=== PATIENT | male | born 1980 | race Caucasian/White ===

== ENCOUNTER 2022-09-21 14:15 | Inpatient (IN) | payer MEDICAID, OTHER ==
[2022-09-20 23:39] VITALS: BP 129/56
[~2022-09-21] VITALS: Ht 182.9 cm; Wt 84.5 kg
[2022-09-21 14:54] LABS: Basophils # (auto) 0.1 10 ^3/uL (0-0.2); Eosinophils # (auto) 0.6 10 ^3/uL (0-0.8); Red Blood Cells 2.71 10^6/uL (4.5-5.90)
[2022-09-21 14:55] LABS: Basophils % (auto) 0.7 % (0.0-2.0); Eosinophils % (auto) 3.1 % (0.0-7.0); Hematocrit 19.3 % (41.0-53.0); Lymphocytes # (auto) 1.9 10 ^3/uL (0.4-5.4); Lymphocytes % (auto) 8.9 % (10.0-50.0); Mean Corpuscular Hemoglobin 20.7 pg (28.0-32.0); Mean Corpuscular Hgb Conc. 29.2 g/dL (32.0-36.0); Monocytes # (auto) 1.1 10 ^3/uL (0-1.3); Neutrophils # (auto) 17.4 10 ^3/uL (1.6-8.6); Neutrophils % (auto) 82.3 % (37.0-80.0); Nucleated Red Blood Cells % 0.1 %; Red Cell Distribution Width 17.6 % (11.8-14.3); White Blood Cell 21.1 10^3/uL (4.4-10.8)
[2022-09-21 15:13] LABS: Albumin 2.8 g/dL (3.4-5.0); Calcium 8.1 mg/dL (8.5-10.1); Potassium 3.5 mmol/L (3.5-5.1)
[2022-09-21 15:18] LABS: BUN/Creatinine Ratio 7.4 (10.0-20.0); Bilirubin, Total 3.6 mg/dL (0.2-1.0); Total Protein 6.7 g/dL (6.4-8.2)
[2022-09-21 15:21] LABS: Hemoglobin 5.6 g/dL (13.5-17.5)
[2022-09-21 16:13] LABS: Magnesium 1.8 mg/dL (1.6-2.6)
[2022-09-21 16:19] LABS: Lactic Acid w/Reflex 3.5 mmol/L (0.4-2.0)
[2022-09-21] MEDS ORDERED: PIPERACILLIN-TAZOB 3.375GM 100 ML IV ONE (16:30)
[2022-09-21 17:15] LABS: Urine Bacteria NONE SEEN /hpf (None Seen); Urine Blood 1+ /uL (Negative); Urine Hyaline Cast FEW /lpf (0 - 2); Urine Mucus FEW (None Seen); Urine Specific Gravity 1.019 (1.001-1.035); Urine WBC 100 /hpf (0 - 3); Urine WBC Clumps PRESENT /hpf (None Seen)
[2022-09-21 17:29] LABS: INR 1.56 (0.9-1.15)
[2022-09-21 17:36] LABS: Alcohol, Urine < 3.0 mg/dL (0-10); Amphetamine Screen, Urine NEGATIVE (NEGATIVE); Barbiturate Scree,Urine NEGATIVE (NEGATIVE); Cannabinoid Screen, Urine NEGATIVE (NEGATIVE); Cocaine Screen, Urine NEGATIVE (NEGATIVE)
[2022-09-21 17:38] LABS: Cannabinoid Screen, Urine NEGATIVE (NEGATIVE)
[2022-09-21 17:39] LABS: % Iron Saturation 3.3 % (20-55)
[2022-09-21 17:40] LABS: Alcohol, Urine < 3.0 mg/dL (0-10); Amphetamine Screen, Urine NEGATIVE (NEGATIVE); Barbiturate Scree,Urine NEGATIVE (NEGATIVE); Benzodiazephine Screen, Urine NEGATIVE (NEGATIVE); Cocaine Screen, Urine NEGATIVE (NEGATIVE); Opiate Scree,Urine NEGATIVE (NEGATIVE); Phencyclidine Screen, Urine NEGATIVE (NEGATIVE)
[2022-09-21] MEDS ORDERED: NICOTINE 14 MG/24HR TOPICAL PATCH TD ONE (17:45)
[2022-09-21] MEDS ORDERED: FOLIC ACID 1 MG TAB PO ONE (17:45)
[2022-09-21] MEDS ORDERED: THIAMINE HCL 100 MG TAB PO ONE (17:45)
[2022-09-21] MEDS ORDERED: MULTIPLE VITAMIN TAB PO ONE (17:45)
[2022-09-21] MEDS ORDERED: SODIUM CHLORIDE 0.9% 2,000 ML IV ONE (17:45)
[2022-09-21] MEDS ORDERED: NITROGLYCERIN 0.4 MG SL TAB SL PRN (18:15)
[2022-09-21] MEDS ORDERED: MORPHINE SULFATE INJ 2 MG/ml SYRG IV PRN (18:15)
[2022-09-21] MEDS ORDERED: ACETAMINOPHEN 325 MG TAB PO PRN (18:15)
[2022-09-21 18:56] LABS: Albumin 2.9 g/dL (3.4-5.0); Calcium 8.2 mg/dL (8.5-10.1); Potassium 3.4 mmol/L (3.5-5.1)
[2022-09-21 18:58] LABS: BUN/Creatinine Ratio 7.9 (10.0-20.0)
[2022-09-21 18:59] LABS: Bilirubin, Total 3.8 mg/dL (0.2-1.0)
[2022-09-21] MEDS ORDERED: SODIUM CHLORIDE 0.9% 1,000 ML IV ONE (19:45)
[2022-09-21] MEDS: PANTOPRAZOLE 40mg/50ML NS AE 50 ML IV SCH ×2 (21:14→22:15)
[2022-09-21] MEDS: OCTREOTIDE ACETATE 500 MCG in SODIUM CHL 0.9% 99 ML IV SCH (22:18)
[2022-09-21 22:44] LABS: Lactic Acid w/Reflex 2.1 mmol/L (0.4-2.0)
[2022-09-21 23:35] VITALS: BP 113/71
[2022-09-21 23:50] VITALS: BP 102/75
[2022-09-22] VITALS (18 sets, daily range): BP systolic 98–124; BP diastolic 67–84
[2022-09-22] MEDS: PIPERACILLIN-TAZOB 3.375GM 100 ML IV SCH ×4 (00:03→21:50)
[2022-09-22] MEDS: LORazepam 2MG/ML-1ML VIAL IV PRN ×2 (00:15→05:28)
[2022-09-22] MEDS: SODIUM CHLORIDE 0.9% 1,000 ML IV SCH ×4 (02:15→19:03)
[2022-09-22] MEDS: PANTOPRAZOLE 40mg/50ML NS AE 50 ML IV SCH ×5 (04:35→23:42)
[2022-09-22] MEDS: OCTREOTIDE ACETATE 500 MCG in SODIUM CHL 0.9% 99 ML IV SCH ×2 (04:35→10:11)
[2022-09-22 06:10] LABS: Basophils # (auto) 0.1 10 ^3/uL (0-0.2); Basophils % (auto) 0.6 % (0.0-2.0); Mean Corpuscular Volume 75.6 fL (80.0-100.0); Monocytes # (auto) 0.9 10 ^3/uL (0-1.3); Monocytes % (auto) 5.7 % (0.0-12.0); Nucleated Red Blood Cells % 0.1 %; Red Cell Distribution Width 19.6 % (11.8-14.3)
[2022-09-22 06:13] LABS: Eosinophils # (auto) 0.7 10 ^3/uL (0-0.8); Eosinophils % (auto) 4.6 % (0.0-7.0); Hematocrit 21.2 % (41.0-53.0); Lymphocytes # (auto) 1.4 10 ^3/uL (0.4-5.4); Lymphocytes % (auto) 8.8 % (10.0-50.0); Mean Corpuscular Hemoglobin 23.1 pg (28.0-32.0); Mean Corpuscular Hgb Conc. 30.6 g/dL (32.0-36.0); Neutrophils # (auto) 13.1 10 ^3/uL (1.6-8.6); Neutrophils % (auto) 80.3 % (37.0-80.0); White Blood Cell 16.4 10^3/uL (4.4-10.8)
[2022-09-22 06:30] LABS: Potassium 3.4 mmol/L (3.5-5.1)
[2022-09-22 06:48] LABS: Albumin 2.4 g/dL (3.4-5.0); BUN/Creatinine Ratio 13.6 (10.0-20.0); Bilirubin, Total 5.2 mg/dL (0.2-1.0); Calcium 7.4 mg/dL (8.5-10.1); Total Protein 5.7 g/dL (6.4-8.2)
[2022-09-22 06:49] LABS: Hemoglobin 6.5 g/dL (13.5-17.5)
[2022-09-22] MEDS: FOLIC ACID 1 MG TAB PO SCH (08:44)
[2022-09-22] MEDS: THIAMINE HCL 100 MG TAB PO SCH (08:44)
[2022-09-22] MEDS: MULTIPLE VITAMIN TAB PO SCH (08:44)
[2022-09-22] MEDS: NICOTINE 14 MG/24HR TOPICAL PATCH TD SCH (08:45)
[2022-09-22 09:47] LABS: Hepatitis B Surface Antibody Negative (Negative)
[2022-09-22 10:13] LABS: Hepatitis A Total Antibody Negative (Negative)
[2022-09-22 11:24] LABS: Folate (Folic Acid) 7.48 ng/mL (5.38-24)
[2022-09-22 13:15] LABS: Hepatitis C Antibody Negative (Negative)
[2022-09-22 13:19] LABS: Hepatitis A Ab IgM Negative; Hepatitis B Core IgM Negative
[2022-09-22 13:21] LABS: Hepatitis C Antibody Negative (Negative)
[2022-09-23] MEDS: OCTREOTIDE ACETATE 500 MCG in SODIUM CHL 0.9% 99 ML IV SCH ×2 (01:01→12:59)
[2022-09-23] MEDS: SODIUM CHLORIDE 0.9% 1,000 ML IV SCH ×3 (01:05→17:07)
[2022-09-23] MEDS: LORazepam 2MG/ML-1ML VIAL IV PRN (04:31)
[2022-09-23 05:00] VITALS: BP 111/75
[2022-09-23] MEDS: PANTOPRAZOLE 40mg/50ML NS AE 50 ML IV SCH ×4 (05:19→23:00)
[2022-09-23] MEDS: PIPERACILLIN-TAZOB 3.375GM 100 ML IV SCH ×3 (05:19→21:26)
[2022-09-23] MEDS ORDERED: SODIUM CHLORIDE LOCK 10 ML ONE (08:41)
[2022-09-23] MEDS ORDERED: LIDOCAINE VISCOUS 2% 15ML UD ONE (08:41)
[2022-09-23 09:00] VITALS: BP 127/89
[2022-09-23] MEDS: MULTIPLE VITAMIN TAB PO SCH (09:08)
[2022-09-23] MEDS: THIAMINE HCL 100 MG TAB PO SCH (09:08)
[2022-09-23] MEDS: FOLIC ACID 1 MG TAB PO SCH (09:08)
[2022-09-23] MEDS: NICOTINE 14 MG/24HR TOPICAL PATCH TD SCH (09:09)
[2022-09-23 11:41] LABS: Hemoglobin 7.5 g/dL (13.5-17.5); White Blood Cell 16.5 10^3/uL (4.4-10.8)
[2022-09-23 11:43] LABS: BUN/Creatinine Ratio 10.3 (10.0-20.0); Calcium 7.2 mg/dL (8.5-10.1); Potassium 3.4 mmol/L (3.5-5.1)
[2022-09-23 11:44] LABS: Basophils # (auto) 0.2 10 ^3/uL (0-0.2); Basophils % (auto) 1.3 % (0.0-2.0); Eosinophils # (auto) 0.8 10 ^3/uL (0-0.8); Eosinophils % (auto) 4.9 % (0.0-7.0); Hematocrit 23.8 % (41.0-53.0); Lymphocytes # (auto) 1.9 10 ^3/uL (0.4-5.4); Lymphocytes % (auto) 11.8 % (10.0-50.0); Mean Corpuscular Hemoglobin 24.3 pg (28.0-32.0); Mean Corpuscular Hgb Conc. 31.4 g/dL (32.0-36.0); Mean Corpuscular Volume 77.1 fL (80.0-100.0); Monocytes # (auto) 1.2 10 ^3/uL (0-1.3); Neutrophils # (auto) 12.4 10 ^3/uL (1.6-8.6); Red Blood Cells 3.09 10^6/uL (4.5-5.90)
[2022-09-23 12:08] LABS: Red Cell Distribution Width 20.9 % (11.8-14.3)
[2022-09-23 13:00] VITALS: BP 114/77
[2022-09-23] MEDS: MIDAZOLAM HCL 5 MG/ML-1ML VIAL ONE ×4 (16:06→16:16)
[2022-09-23] MEDS: fentaNYL CITRATE 100 MCG/2 ML VL ONE ×3 (16:06→16:12)
[2022-09-23] MEDS: diphenhdrAMINE HCL 50 MG/1 ML VL ONE ×2 (16:06→16:09)
[2022-09-23] MEDS: SUCRALFATE 1 GM/10 ML ORAL SUSP PO SCH ×2 (17:06→21:26)
[2022-09-23 22:00] VITALS: BP 119/81
[2022-09-24] MEDS: PANTOPRAZOLE 40mg/50ML NS AE 50 ML IV SCH ×5 (00:45→22:06)
[2022-09-24] MEDS: OCTREOTIDE ACETATE 500 MCG in SODIUM CHL 0.9% 99 ML IV SCH ×3 (01:53→12:19)
[2022-09-24 05:00] VITALS: BP 105/69
[2022-09-24] MEDS: PIPERACILLIN-TAZOB 3.375GM 100 ML IV SCH (05:15)
[2022-09-24] MEDS: SODIUM CHLORIDE 0.9% 1,000 ML IV SCH ×3 (05:17→17:10)
[2022-09-24] MEDS: SUCRALFATE 1 GM/10 ML ORAL SUSP PO SCH ×4 (06:46→22:06)
[2022-09-24 09:00] VITALS: BP 96/64
[2022-09-24] MEDS: cefTRIAXone 1GM/50ML D5W 50 ML IV SCH (10:30)
[2022-09-24] MEDS: NICOTINE 14 MG/24HR TOPICAL PATCH TD SCH (10:36)
[2022-09-24] MEDS: THIAMINE HCL 100 MG TAB PO SCH (10:36)
[2022-09-24] MEDS: MULTIPLE VITAMIN TAB PO SCH (10:36)
[2022-09-24] MEDS: FOLIC ACID 1 MG TAB PO SCH (10:36)
[2022-09-24 13:00] VITALS: BP 119/85
[2022-09-24 17:00] VITALS: BP 124/87
[2022-09-24 22:00] VITALS: BP 132/84
[2022-09-25] MEDS: PANTOPRAZOLE 40mg/50ML NS AE 50 ML IV SCH ×3 (01:25→12:19)
[2022-09-25] MEDS: OCTREOTIDE ACETATE 500 MCG in SODIUM CHL 0.9% 99 ML IV SCH ×2 (01:26→12:30)
[2022-09-25] MEDS: SODIUM CHLORIDE 0.9% 1,000 ML IV SCH ×3 (03:46→12:32)
[2022-09-25 05:00] VITALS: BP 105/61
[2022-09-25] MEDS: SUCRALFATE 1 GM/10 ML ORAL SUSP PO SCH ×2 (06:28→12:15)
[2022-09-25 09:00] VITALS: BP 125/88
[2022-09-25] MEDS: NICOTINE 14 MG/24HR TOPICAL PATCH TD SCH (09:06)
[2022-09-25] MEDS: MULTIPLE VITAMIN TAB PO SCH (09:06)
[2022-09-25] MEDS: FOLIC ACID 1 MG TAB PO SCH (09:06)
[2022-09-25] MEDS: THIAMINE HCL 100 MG TAB PO SCH (09:06)
[2022-09-25] MEDS: cefTRIAXone 1GM/50ML D5W 50 ML IV SCH (09:06)
[2022-09-25] MEDS ORDERED: POTASSIUM CHL 20 Meq TABLET PO ONE (11:30)
[2022-09-25 13:00] VITALS: BP 121/80
[2022-09-25 15:28] VITALS: BP 117/82
== END 2022-09-25 18:00 | disposition home or self-care (01) | DRG 720 ==
LOC: ER 14:15 → TELE 18:16 → TELE-WESTW 21:35
PROVIDERS: ADMIT Nurse Practitioner Family; ATTEND Internal Medicine
PROC: 30233N1 Transfusion of Nonautologous Red Blood Cells into Peripheral Vein, Percutaneous Approach (ICD-10-PCS; principal; 2022-09-21)
PROC: 0W9G3ZZ Drainage of Peritoneal Cavity, Percutaneous Approach (ICD-10-PCS; 2022-09-22)
PROC: 0DB98ZX Excision of Duodenum, Via Natural or Artificial Opening Endoscopic, Diagnostic (ICD-10-PCS; 2022-09-23)
PROC: 0DB78ZX Excision of Stomach, Pylorus, Via Natural or Artificial Opening Endoscopic, Diagnostic (ICD-10-PCS; 2022-09-23)
DX: A41.9 Sepsis, unspecified organism (principal); R18.8 Other ascites; K25.4 Chronic or unspecified gastric ulcer with hemorrhage; K57.31 Diverticulosis of large intestine without perforation or abscess with bleeding; K74.60 Unspecified cirrhosis of liver; R16.0 Hepatomegaly, not elsewhere classified; D50.0 Iron deficiency anemia secondary to blood loss (chronic); F10.10 Alcohol abuse, uncomplicated; Z20.822 Contact with and (suspected) exposure to COVID-19; F17.210 Nicotine dependence, cigarettes, uncomplicated; E80.6 Other disorders of bilirubin metabolism; K29.71 Gastritis, unspecified, with bleeding; K26.4 Chronic or unspecified duodenal ulcer with hemorrhage; K29.81 Duodenitis with bleeding; K31.89 Other diseases of stomach and duodenum; K44.9 Diaphragmatic hernia without obstruction or gangrene; K31.9 Disease of stomach and duodenum, unspecified; Z79.899 Other long term (current) drug therapy; N39.0 Urinary tract infection, site not specified
CPT/HCPCS: 36415; 36430; 49083; 71046; 74176; 76705; 80048; 80053; 80074; 80307; 81001; 82105; 82140; 82270; 82378; 82607; 82746; 83540; 83550; 83605; 83690; 83735; 83880; 84484; 85025; 85610; 86704; 86706; 86708; 86803; 86850; 86900; 86901; 86920; 87040; 87086; 87340; 93005; 96365; G0378; J0696; J2250; J2543

== ENCOUNTER 2022-11-14 23:54 | Emergency (ER) | payer MEDICAID ==
[~2022-11-14] VITALS: Ht 172.7 cm; Wt 65.0 kg
[2022-11-14 23:56] VITALS: PULSE 108; RESP 14; O2SAT 99
[2022-11-14] MEDS ORDERED: ROCURONIUM 10MG/ML 10ML VIAL IV ONE (23:59)
[2022-11-15] MEDS ORDERED: MIDAZOLAM DRIP 50 mg/50mL 50 ML IV ONE (00:10)
[2022-11-15] MEDS ORDERED: METOCLOPRAMIDE HCL 5MG/ml INJ 2ml VIAL IV ONE (00:30)
[2022-11-15] MEDS ORDERED: ONDANSETRON HCL 4 MG/2 ML VIAL IV ONE (00:30)
[2022-11-15] MEDS ORDERED: TETANUS-DIPTH-ACEL PERTUSSIS 0.5ML SYR Tdap IM ONE (00:45)
[2022-11-15] MEDS ORDERED: ROCURONIUM 10MG/ML 10ML VIAL IV ONE (00:45)
[2022-11-15] MEDS ORDERED: fentaNYL Drip 2500mCg/250mlNS 250 ML IV SCH (00:45)
[2022-11-15] MEDS ORDERED: PANTOPRAZOLE 40 MG/10 ML VIAL INJ IV ONE (00:45)
[2022-11-15] MEDS ORDERED: SUCCINYLCHOLINE CHLORIDE 20 MG/ML 10ML VIAL IV ONE (00:45)
[2022-11-15] MEDS ORDERED: SODIUM CHLORIDE 0.9% 1,950 ML IV ONE (00:45)
[2022-11-15] MEDS ORDERED: cefTRIAXone 1GM/50ML D5W 50 ML IV ONE (00:45)
[2022-11-15 00:52] LABS: Basophils # (auto) 0.1 10 ^3/uL (0-0.2); Eosinophils # (auto) 0.1 10 ^3/uL (0-0.8); Mean Corpuscular Hemoglobin 26.5 pg (28.0-32.0); Neutrophils # (auto) 11.5 10 ^3/uL (1.6-8.6); White Blood Cell 13.9 10^3/uL (4.4-10.8)
[2022-11-15] MEDS ORDERED: IOHEXOL 300 MG/ML 100ML BOTTLE IJ ONE (00:52)
[2022-11-15 00:54] LABS: Basophils % (auto) 0.6 % (0.0-2.0); Eosinophils % (auto) 0.5 % (0.0-7.0); Hematocrit 29.8 % (41.0-53.0); Hemoglobin 9.5 g/dL (13.5-17.5); Lymphocytes # (auto) 1.1 10 ^3/uL (0.4-5.4); Lymphocytes % (auto) 8.1 % (10.0-50.0); Mean Corpuscular Hgb Conc. 31.7 g/dL (32.0-36.0); Mean Corpuscular Volume 83.6 fL (80.0-100.0); Monocytes % (auto) 7.5 % (0.0-12.0); Neutrophils % (auto) 83.3 % (37.0-80.0); Red Blood Cells 3.57 10^6/uL (4.5-5.90)
[2022-11-15 01:01] LABS: Red Cell Distribution Width 23.8 % (11.8-14.3)
[2022-11-15 01:16] LABS: INR 1.45 (0.9-1.15); Partial Thromboplastin Time 28.6 SEC (24.5-34.5)
[2022-11-15 01:29] LABS: Albumin 2.6 g/dL (3.4-5.0); BUN/Creatinine Ratio 6.8 (10.0-20.0); Calcium 7.9 mg/dL (8.5-10.1); Magnesium 1.8 mg/dL (1.6-2.6); Potassium 3.4 mmol/L (3.5-5.1)
[2022-11-15 01:30] LABS: Lactic Acid w/Reflex 2.7 mmol/L (0.4-2.0)
[2022-11-15] MEDS ORDERED: VANCOMYCIN 1GM/250ML 250 ML IV ONE (01:30)
[2022-11-15 01:32] LABS: Bilirubin, Total 1.7 mg/dL (0.2-1.0); Total Protein 7.7 g/dL (6.4-8.2)
[2022-11-15] MEDS ORDERED: levETIRAcetam 500 MG/5ML INJ IV ONE (01:51)
[2022-11-15 02:00] LABS: Amphetamine Screen, Urine NEGATIVE (NEGATIVE); Barbiturate Scree,Urine NEGATIVE (NEGATIVE); Benzodiazephine Screen, Urine NEGATIVE (NEGATIVE); Cannabinoid Screen, Urine NEGATIVE (NEGATIVE); Cocaine Screen, Urine NEGATIVE (NEGATIVE); Opiate Scree,Urine NEGATIVE (NEGATIVE)
[2022-11-15 02:03] LABS: Urine Bacteria NONE SEEN /hpf (None Seen); Urine Blood TRACE /uL (Negative); Urine Hyaline Cast MANY /lpf (0 - 2); Urine Mucus FEW (None Seen); Urine Specific Gravity 1.017 (1.001-1.035); Urine WBC 5 /hpf (0 - 3)
[2022-11-15 02:05] LABS: Blood Alcohol 354.4 mg/dL (<10)
[2022-11-15 02:09] LABS: Phencyclidine Screen, Urine NEGATIVE (NEGATIVE)
[2022-11-15 02:11] VITALS: BP 114/70; PULSE 120; RESP 20; TEMP 95.9; O2SAT 96
[2022-11-15] MEDS ORDERED: MIDAZOLAM DRIP 50 mg/50mL 50 ML IV SCH (02:15)
[2022-11-15 02:51] LABS: Lactic Acid w/Reflex 2.2 mmol/L (0.4-2.0)
[2022-11-15] MEDS ORDERED: PIPERACILLIN-TAZO 4.5GM 100 ML IV SCH (06:00)
[2022-11-15] MEDS ORDERED: VANCOMYCIN 1GM/250ML 250 ML IV SCH (10:00)
== END 2022-11-15 01:41 | disposition hospice, inpatient (51) ==
LOC: EDBD 23:54 → ER 23:54
DX: S06.5XAA Traumatic subdural hemorrhage with loss of consciousness status unknown, initial encounter (principal); G93.40 Encephalopathy, unspecified; R41.82 Altered mental status, unspecified; F10.10 Alcohol abuse, uncomplicated; R06.02 Shortness of breath; R07.9 Chest pain, unspecified; Z79.899 Other long term (current) drug therapy; Z79.01 Long term (current) use of anticoagulants; X58.XXXA Exposure to other specified factors, initial encounter; Y93.89 Activity, other specified; Y92.89 Other specified places as the place of occurrence of the external cause; Y99.8 Other external cause status
CPT/HCPCS: 31500; 36415; 36600; 70450; 71045; 71260; 72125; 74177; 80053; 80307; 80320; 81001; 82553; 82805; 83605; 83735; 83880; 84443; 84484; 85025; 85379; 85610; 85730; 86850; 86900; 86901; 87040; 87070; 87086; 87205; 93005; 96365; 96368; 96375; 99291; C9113; J0696; J1953; J2250; J2405; J2765; J7060; Q9967; 94002